=== PATIENT | male | born 1945 | race American Indian/Alaskan Native ===

== ENCOUNTER 2019-09-28 11:21 | Emergency (ER) | payer MEDICARE ==
[2019-09-28] MEDS ORDERED: SODIUM CHLORIDE 0.9% 1000 ML 1,000 ML IV ONE (11:49)
--- NOTE | 2019-09-28 11:51 | Emergency Department Report ---
Blank Doc - Documentation Documentation: 74-year-old male that presents with flu like symptoms. Patient is diaphoretic and a witnessed episode of SZ noted in the ED by RN. Patient rushed to Main ED. Labs ordered.
[2019-09-28 12:23] LABS: Hematocrit 41.9 % (35.5-45.6); Hemoglobin 13.4 gm/dl (11.8-15.2); Mean Corpuscular HGB Conc 32 % (32-34); Mean Corpuscular Volume 71 fl (84-94); Platelet Count 228 K/mm3 (140-440); Red Blood Count 5.87 M/mm3 (3.65-5.03); Red Cell Distribution Width 16.9 % (13.2-15.2)
[2019-09-28 12:33] LABS: INR 1.08 (0.87-1.13)
[2019-09-28 12:34] LABS: Partial Thromboplastin Time 26.2 Sec. (24.2-36.6)
--- NOTE | 2019-09-28 12:38 | XRay Report ---
CHEST 1 VIEW INDICATION / CLINICAL INFORMATION: Chest Pain. COMPARISON: None available. FINDINGS: SUPPORT DEVICES: None. HEART / MEDIASTINUM: No significant abnormality. LUNGS / PLEURA: The right lung is clear. Elevated left hemidiaphragm is seen with slight left basilar atelectasis. No infiltrate, edema or effusion. No pneumothorax. ADDITIONAL FINDINGS: No significant additional findings. IMPRESSION: 1 Left basilar atelectasis. Signer Name: Adryan Rouse MD Signed: 09/28/2019 12:33 PM Workstation Name: [id number]
[2019-09-28 13:29] LABS: Alanine Aminotransferase 13 units/L (7-56); Albumin 4.5 g/dL (3.9-5); BUN/Creatinine Ratio 17; Blood Urea Nitrogen 22 mg/dL (9-20); Calcium 9.3 mg/dL (8.4-10.2); Hemolysis Index 7
[2019-09-28 13:40] LABS: Basophils % (Manual) 0 % (0.0-1.8); Eosinophils % (Manual) 0 % (0.0-4.3); Hypochromasia 1+; Schistocytes Few; Total Cells Counted 100
[2019-09-28 13:41] LABS: Anisocytosis 1+; Ovalocytes Few; Platelet Estimate Consistent w Auto; Poikilocytosis Few
--- NOTE | 2019-09-28 14:39 | Cat Scan Report ---
CTA CHEST WITH CONTRAST INDICATION : Syncope, elevated dimer. TECHNIQUE: Axial imaging performed through the chest, with contrast bolus timing set to maximize opa cification of the pulmonary arteries. 3-plane MIP reformatted images were obtained. All CT scans at this location are performed using CT dose reduction for ALARA by means of automated exposure control. 100 mL of intravenous contrast administered. Consent was obtained prior to the administration of cont rast. COMPARISON: A same day chest x-ray. FINDINGS: Bolus: Contrast bolus timing is adequate. PTE: No filling defect is present to suggest PTE. Mediastinum: Heart and great vessels appear normal. No pathologic mediastinal adenopathy. Lungs: Severe emphysema. A 6.9 x 5.8 cm right apical bulla. Upper abdomen: Limited imaging of the upper abdomen shows nothing acute. Bones: No suspicious bone lesions. IMPRESSION: 1. Negative for PTE. 2. Severe emphysema. Signer Name: Sathya Rene MD Signed: 09/28/2019 2:35 PM Workstation Name: [id number]
--- NOTE | 2019-09-28 15:19 | Emergency Department Report ---
HPI - General Chief Complaint: Upper Respiratory Infection Time Seen by Provider: 09/28/19 11:48 - HPI HPI: 74-year-old -[place] male presents to the emergency department originally with the complaint of a few days of some cold-like symptoms that include runny nose and a productive cough. While in the emergency department waiting room the patient apparently became diaphoretic and had a syncopal episode with some questionable seizure-like activity. At this point the patient was brought directly back to the main emergency department. Since my initial evaluation the patient has been awake, alert, oriented and in no acute distress. He has a past medical history of hypertension. He denies any tobacco or illicit drug use. He does not have a specific primary care physician but says he can get care through the [facility]. ED Past Medical Hx - Past Medical History Previous Medical History?: Yes Hx Hypertension: Yes - Surgical History Past Surgical History?: No - Social History Smoking Status: Never Smoker Substance Use Type: None - Medications Home Medications: Home Medications Medication Instructions Recorded Confirmed Last Taken Type Cyclobenzaprine [Flexeril 10mg] 10 mg PO TID PRN #20 tablet 06/28/14 Unknown Rx Naproxen [Naprosyn TAB] 500 mg PO BID #30 tablet 06/28/14 Unknown Rx traMADoL [Ultram 50 MG tab] 50 mg PO Q6HR PRN #20 tablet 06/28/14 Unknown Rx Albuterol INH(or & Nicu Only) 2 puff IH QID PRN #8.5 gram 09/28/19 Unknown Rx [ProAir HFA Inhaler] Benzonatate [Tessalon Perles] 100 mg PO Q8HR PRN #20 capsule 09/28/19 Unknown Rx ED Review of Systems ROS: Stated complaint: COLD/FLU SYM Other details as noted in HPI Comment: All other systems reviewed and negative Constitutional: denies: chills, fever Eyes: denies: eye pain, vision change ENT: denies: ear pain, throat pain Respiratory: cough. denies: shortness of breath Cardiovascular: syncope. denies: chest pain Gastrointestinal: denies: abdominal pain, vomiting Genitourinary: denies: dysuria, discharge Musculoskeletal: denies: back pain, arthralgia Skin: denies: rash, lesions Neurological: denies: numbness, paresthesias Physical Exam - Physical Exam Vital Signs: Vital Signs 09/28/19 09/28/19 09/28/19 11:34 11:52 12:00 Temperature 98.7 F Pulse Rate 98 H 101 H 91 H Respiratory 18 12 12 Rate Blood Pressure Blood Pressure 123/95 [Right] O2 Sat by Pulse 100 99 Oximetry 09/28/19 09/28/19 09/28/19 12:13 12:16 12:30 Temperature Pulse Rate 98 H 98 H 96 H Respiratory 18 17 14 Rate Blood Pressure 101/83 Blood Pressure 101/83 [Right] O2 Sat by Pulse 97 96 96 Oximetry 09/28/19 09/28/19 09/28/19 12:45 13:00 13:16 Temperature Pulse Rate 107 H 87 75 Respiratory 17 20 19 Rate Blood Pressure 114/85 114/85 122/89 Blood Pressure [Right] O2 Sat by Pulse 97 96 100 Oximetry 09/28/19 09/28/19 13:30 14:50 Temperature Pulse Rate 73 115 H Respiratory 20 21 Rate Blood Pressure 118/80 135/91 Blood Pressure [Right] O2 Sat by Pulse 97 96 Oximetry Physical Exam: GENERAL: The patient is well-developed well-nourished. HEENT: Normocephalic. Atraumatic. Patient has moist mucous membranes. EYES: Extraocular motions are intact. Pupils equal and reactive to light bilaterally. No nystagmus. NECK: Supple. Trachea is midline. CHEST/LUNGS: Clear to auscultation. There is no respiratory distress noted. HEART/CARDIOVASCULAR: Regular. There is no tachycardia. There is no murmur. ABDOMEN: Abdomen is soft, nontender. Patient has normal bowel sounds. There is no abdominal distention. SKIN:Skin is warm and dry. . NEURO: The patient is awake, alert, and oriented. The patient is cooperative. The patient has no focal neurologic deficits. Normal speech. Cranial nerves II through XII grossly intact. MUSCULOSKELETAL: There is no tenderness or deformity. There is no limitation range of motion. There is no evidence of acute injury. ED Course Vital Signs 09/28/19 09/28/19 09/28/19 11:34 11:52 12:00 Temperature 98.7 F Pulse Rate 98 H 101 H 91 H Respiratory 18 12 12 Rate Blood Pressure Blood Pressure 123/95 [Right] O2 Sat by Pulse 100 99 Oximetry 09/28/19 09/28/19 09/28/19 12:13 12:16 12:30 Temperature Pulse Rate 98 H 98 H 96 H Respiratory 18 17 14 Rate Blood Pressure 101/83 Blood Pressure 101/83 [Right] O2 Sat by Pulse 97 96 96 Oximetry 09/28/19 09/28/19 09/28/19 12:45 13:00 13:16 Temperature Pulse Rate 107 H 87 75 Respiratory 17 20 19 Rate Blood Pressure 114/85 114/85 122/89 Blood Pressure [Right] O2 Sat by Pulse 97 96 100 Oximetry 09/28/19 09/28/19 13:30 14:50 Temperature Pulse Rate 73 115 H Respiratory 20 21 Rate Blood Pressure 118/80 135/91 Blood Pressure [Right] O2 Sat by Pulse 97 96 Oximetry ED Medical Decision Making - Lab Data Result diagrams: 09/28/19 12:12 09/28/19 12:12 - EKG Data -: EKG Interpreted by Me EKG shows normal: sinus rhythm (PACs), axis, intervals, QRS complexes (Q waves to the inferior leads), ST-T waves Rate: tachycardia (109 beats per minute) - EKG Data When compared to previous EKG there are: previous EKG unavailable Interpretation: other (sinus rhythm, PACs, Q waves inferior leads, mild tachycardia) - Radiology Data Radiology results: report reviewed, image reviewed interpreted by me: Chest x-ray does not show any pleural effusions, pneumonia, pneumothorax, focal consolidation, or any other acute process. CTA CHEST WITH CONTRAST INDICATION : Syncope, elevated dimer. TECHNIQUE: Axial imaging performed through the chest, with contrast bolus timing set to maximize opacification of the pulmonary arteries. 3-plane MIP reformatted images were obtained. All CT scans at this location are performed using CT dose reduction for ALARA by means of automated exposure control. 100 mL of intravenous contrast administered. Consent was obtained prior to the administration of contrast. COMPARISON: A same day chest x-ray. FINDINGS: Bolus: Contrast bolus timing is adequate. PTE: No filling defect is present to suggest PTE. Mediastinum: Heart and great vessels appear normal. No pathologic mediastinal adenopathy. Lungs: Severe emphysema. A 6.9 x 5.8 cm right apical bulla. Upper abdomen: Limited imaging of the upper abdomen shows nothing acute. Bones: No suspicious bone lesions. IMPRESSION: 1. Negative for PTE. 2. Severe emphysema. - Medical Decision Making This patient presents to the emergency department with a complaint of some cold symptoms of the past 2 days. While waiting to be seen he had some type of seizure or syncopal episode. However he immediately returned to his normal mental status and at the time of my initial examination the patient has no complaints other than this today cold symptoms. He denies any headache, chest pain, palpitations, shortness of breath. An EKG was done that does not show any ST elevation MO or signs of acute ischemia and just appears to show some PACs with mild tachycardia. The patient's labs were mostly unremarkable including CBC, metabolic panel, troponin but he did have a slightly elevated at the clavicle d-dimer level. A chest x-ray did not show any acute process. CT angiography of the chest does not show any signs of PE and shows severe emphysema. Patient's vital signs stable throughout his ED course. He has been reevaluated multiple times for multiple hours and has remained stable. Patient appears safe for discharge home at this time. He will be given a prescription for an albuterol inhaler and a cough medication. He has been instructed to follow-up with his primary care physician. He will return to the ER with any headache, neurological changes, chest pain, worsening of his symptoms, or with any acute distress. Critical Care Time: No Critical care attestation.: If time is entered above; I have spent that time in minutes in the direct care of this critically ill patient, excluding procedure time. ED Disposition Clinical Impression: Upper respiratory infection, Syncope Disposition: DC-01 TO HOME OR SELFCARE Is pt being admited?: No Condition: Stable Instructions: Syncope (ED), Upper Respiratory Infection (ED), Cold Symptoms (ED) Additional Instructions: Please follow up with your primary care physician in the next few days. Return to the emergency department immediately with any further episodes of passing out, any development of chest pain or shortness of breath, worsening of your s ymptoms, or with any acute distress. Prescriptions: Albuterol INH(or & Nicu Only) [ProAir HFA Inhaler] 2 puff IH QID PRN #8.5 gram PRN Reason: Shortness Of Breath Benzonatate [Tessalon Perles] 100 mg PO Q8HR PRN #20 capsule PRN Reason: Cough Referrals: [facility] [Outside] - 2-3 Days [facility] [Outside] - 2-3 Days Time of Disposition: 15:26
[2019-09-28 15:26] LABS: Bilirubin,Urine NEG (Negative); Blood,Urine SM (Negative); Color,Urine Straw (Yellow); Mucus,Urine FEW /HPF; Protein,Urine <15 mg/dL mg/dL (Negative); Urobilinogen,Urine < 2.0 mg/dL (<2.0)
[2019-09-28 15:32] LABS: Amphetamine Screen,Urine PRESUMPTIVE NEGATIVE; Benzodiazepines Screen,Urine PRESUMPTIVE NEGATIVE; Cannabinoid Screen,Urine PRESUMPTIVE NEGATIVE; Cocaine Screen,Urine PRESUMPTIVE NEGATIVE; Methadone Screen,Urine PRESUMPTIVE NEGATIVE; Opiate Screen,Urine PRESUMPTIVE NEGATIVE
[2019-09-28 16:59] VITALS: BP 124/86
== END 2019-09-28 16:15 | disposition home or self-care (01) ==
LOC: ED 11:21
DX: J06.9 Acute upper respiratory infection, unspecified (principal); R55 Syncope and collapse; I10 Essential (primary) hypertension; Z79.899 Other long term (current) drug therapy
CPT/HCPCS: 36415; 71045; 71275; 80053; 80307; 81001; 82962; 84484; 85007; 85025; 85379; 85610; 85730; 87400; 93005; 93010; 99285; J7030; Q9967